=== PATIENT | female | born 1960 | race American Indian/Alaskan Native ===

== ENCOUNTER 2018-06-30 11:34 | Outpatient (CLI) | payer MEDICARE, OTHER ==
[2018-06-30 12:22] LABS: Hematocrit 42.8 % (30.3-42.9); Hemoglobin 14.6 gm/dl (10.1-14.3); Mean Corpuscular HGB Conc 34 % (30-34); Mean Corpuscular Hemoglobin 31 pg (28-32); Mean Corpuscular Volume 92 fl (79-97); Platelet Count 241 K/mm3 (140-440); Red Blood Count 4.64 M/mm3 (3.65-5.03); Red Cell Distribution Width 14.7 % (13.2-15.2)
--- NOTE | 2018-06-30 12:29 | XRay Report ---
ROUTINE CHEST, TWO VIEWS: HISTORY: Cough. The trachea, heart, mediastinal contour, lung guo and bony thorax are unremarkable. IMPRESSION: Unremarkable chest x-ray.
[2018-06-30 12:37] LABS: Alanine Aminotransferase 19 units/L (7-56); Albumin 3.8 g/dL (3.9-5); BUN/Creatinine Ratio 17; Blood Urea Nitrogen 12 mg/dL (7-17); Calcium 10.1 mg/dL (8.4-10.2); Chol/HDL Ratio 3.08 %; HDL Cholesterol 58 mg/dL (40-59); Hemolysis Index 11; LDL Cholesterol,Direct 123 mg/dL (50-130)
== END 2018-06-30 11:35 | disposition home or self-care (01) ==
LOC: XRAY 11:34
PROVIDERS: ATTEND Internal Medicine
DX: J45.909 Unspecified asthma, uncomplicated (principal); E78.00 Pure hypercholesterolemia, unspecified; I10 Essential (primary) hypertension; K21.9 Gastro-esophageal reflux disease without esophagitis; M19.90 Unspecified osteoarthritis, unspecified site; Z90.710 Acquired absence of both cervix and uterus; Z87.891 Personal history of nicotine dependence
CPT/HCPCS: 36415; 36600; 71046; 80053; 80061; 82785; 82803; 84436; 84443; 85027

== ENCOUNTER 2019-08-27 06:30 | Day surgery (SDC) | payer MEDICARE, OTHER ==
[2019-08-27] MEDS ORDERED: SODIUM CHLORIDE 0.9% 500 ML 500 ML ONE (07:12)
[2019-08-27 07:24] LABS: Basophils % (Auto) 0.5 % (0.0-1.8); Eosinophils % (Auto) 0.3 % (0.0-4.3); Hematocrit 39.1 % (30.3-42.9); Hemoglobin 13.1 gm/dl (10.1-14.3); Lymphocytes # (Auto) 3.1 K/mm3 (1.2-5.4); Lymphocytes % (Auto) 46.9 % (13.4-35.0); Mean Corpuscular HGB Conc 34 % (30-34); Mean Corpuscular Volume 97 fl (79-97); Monocytes # (Auto) 0.5 K/mm3 (0.0-0.8); Monocytes % (Auto) 7.2 % (0.0-7.3); Platelet Count 192 K/mm3 (140-440); Red Blood Count 4.02 M/mm3 (3.65-5.03); Red Cell Distribution Width 15.8 % (13.2-15.2)
[2019-08-27] MEDS ORDERED: ASPIRIN EC 325 MG TAB PO ONE (07:30)
[2019-08-27 07:34] LABS: INR 0.9 (0.87-1.13)
[2019-08-27 07:35] LABS: Partial Thromboplastin Time 24.6 Sec. (24.2-36.6)
[2019-08-27 07:44] LABS: BUN/Creatinine Ratio 21; Blood Urea Nitrogen 19 mg/dL (7-17); Hemolysis Index 2
[2019-08-27] MEDS ORDERED: SODIUM CHLORIDE 0.9% 500 ML 500 ML IV SCH (08:00)
[2019-08-27] MEDS ORDERED: HEPARIN/NS 5000 UNIT/500ML 1,000 ML IR ONE (09:03)
[2019-08-27] MEDS: MIDAZOLAM 2 MG/2 ML INJ ONE ×2 (09:44→10:04)
[2019-08-27] MEDS: fentaNYL 100 MCG/2 ML INJ ONE ×2 (09:44→10:04)
[2019-08-27] MEDS: LIDOCAINE (2%) 20 MG/1 ML VIAL 20 ML MDV INFILTRATI ONE ×2 (09:44→10:07)
[2019-08-27] MEDS: VERAPAMIL 5 MG/2 ML INJ ONE ×2 (09:45→10:08)
[2019-08-27] MEDS: NITROGLYCERIN SYRINGE 3 ML ONE ×2 (09:45→10:08)
[2019-08-27] MEDS: HEPARIN 10,000 UNITS/10 ML VIAL ONE ×2 (09:45→10:08)
--- NOTE | 2019-08-27 10:41 | Cardiac Catherization Report ---
CARDIAC CATHETERIZATION REPORT REASON FOR PROCEDURE: Chest pain, preoperative back surgery. PROCEDURES: 1. Left heart catheterization. 2. Selective left and right coronary angiography. 3. Left ventricular angiography. 4. Sedation time, start 10:04, end 10:24. DESCRIPTION OF PROCEDURE: The patient was prepped and draped in a sterile fashion after informed consent. The right radial cath site was prepped and draped after a negative Román's test. The right radial artery was entered using Seldinger technique followed by placement of a 6-[place] hydrophilic sheath. Routine radial cocktail was administered via the sheath. Selective left and right coronary angiography was performed using a #3.5 left Basia and #4 right Basia catheters. A pigtail catheter was used for left ventricular angiography. The catheters were removed, sheath removed, and hemostasis achieved using a TR band. The patient was returned to the postprocedure unit in stable condition. There were no complications. FINDINGS: HEMODYNAMICS: Left ventricular end-diastolic pressure was 28, following coronary angiography. Ascending aortic pressure was 144/67. There was no significant pressure gradient on pullback across the aortic valve. CORONARY ANGIOGRAPHY: Left main coronary artery was angiographically normal. The left anterior descending artery and its diagonal branches were free of significant disease. The circumflex artery and its obtuse marginal branches contained mild luminal irregularities. A large ramus intermedius artery was free of significant disease. The right coronary artery was dominant. This vessel contained mild to moderate diffuse atherosclerosis of its mid segment. There was an up to 30-50% luminal stenosis of the mid segment. There was normal left ventricular systolic function, ejection fraction 60-65%. CONCLUSION: 1. Mild, nonobstructive single vessel coronary artery disease of the right coronary artery. 2. Normal left ventricular systolic function, ejection fraction 60-65%. RECOMMENDATION: Aggressive risk factor modification and medical therapy. JOB# [id number] CA/NTS
--- NOTE | 2019-08-27 10:45 | Discharge Summary ---
Short Stay Discharge Plan Activity: advance as tolerated Weight Bearing Status: Full Weight Bearing Diet: low fat, low cholesterol, low salt Wound: keep clean and dry Special Instructions: no heavy lifting (3 days) Follow up with: JULIANA IVAN MD [Primary Care Provider] - 7 Days PIEDAD ROWELL MD [Staff Physician] - 7 Days
[2019-08-27] MEDS ORDERED: SODIUM CHLORIDE 0.9% 1000 ML 1,000 ML IV SCH (11:00)
[2019-08-27 13:55] VITALS: BP 158/97
== END 2019-08-27 06:31 | disposition home or self-care (01) ==
LOC: CATHLABREC 06:30
PROVIDERS: ATTEND Internal Medicine Cardiovascular Disease
DX: R07.9 Chest pain, unspecified (principal); I25.118 Atherosclerotic heart disease of native coronary artery with other forms of angina pectoris; E11.51 Type 2 diabetes mellitus with diabetic peripheral angiopathy without gangrene; I73.9 Peripheral vascular disease, unspecified; E78.00 Pure hypercholesterolemia, unspecified; I10 Essential (primary) hypertension; J45.909 Unspecified asthma, uncomplicated; K21.9 Gastro-esophageal reflux disease without esophagitis; F41.9 Anxiety disorder, unspecified; M19.90 Unspecified osteoarthritis, unspecified site; Z79.899 Other long term (current) drug therapy; Z88.0 Allergy status to penicillin; Z79.82 Long term (current) use of aspirin; Z98.890 Other specified postprocedural states; Z90.49 Acquired absence of other specified parts of digestive tract; Z90.710 Acquired absence of both cervix and uterus; Z96.659 Presence of unspecified artificial knee joint; Z85.89 Personal history of malignant neoplasm of other organs and systems; Z88.8 Allergy status to other drugs, medicaments and biological substances; Z86.73 Personal history of transient ischemic attack (TIA), and cerebral infarction without residual deficits
CPT/HCPCS: 36415; 80048; 85025; 85610; 85730; 93005; 93010; 93458; 99156; C1894; J1644; J2250; J3010; J7040; Q9967

== ENCOUNTER 2019-10-01 11:45 | Outpatient (CLI) | payer MEDICARE, OTHER ==
[2019-10-01 12:45] LABS: Hematocrit 41.6 % (30.3-42.9); Hemoglobin 14.5 gm/dl (10.1-14.3); Mean Corpuscular HGB Conc 35 % (30-34); Mean Corpuscular Volume 95 fl (79-97); Platelet Count 229 K/mm3 (140-440); Red Blood Count 4.38 M/mm3 (3.65-5.03)
[2019-10-01 12:56] LABS: Albumin 3.8 g/dL (3.9-5); BUN/Creatinine Ratio 14; Blood Urea Nitrogen 10 mg/dL (7-17); Calcium 9.5 mg/dL (8.4-10.2); Hemolysis Index 337
--- NOTE | 2019-10-01 14:45 | Cat Scan Report ---
CT CHEST WITH CONTRAST INDICATION / CLINICAL INFORMATION: R07.81 PLEURODYNIA. TECHNIQUE: Axial CT images were obtained through the chest after 100 cc Omnipaque 300 IV contrast. Sagittal and coronal reformatted images. All CT scans at this location are performed using CT dose reduction for A ACOSTA by means of automated exposure control. COMPARISON: None available. FINDINGS: HEART: No significant abnormality. THORACIC AORTA: No significant abnormality. MEDIASTINUM and MORA: No significant abnormality. LUNGS: No acute air space or interstitial disease. PLEURA: No significant pleural effusion. No pneumothorax. SKELETAL SYSTEM: No significant abnormality. UPPER ABDOMEN: No acute abnormality. Cholecystectomy changes, gastric surgical changes and 2 cm left renal cyst are noted. ADDITIONAL FINDINGS: None. IMPRESSION: No significant abnormality. Signer Name: Ritchie Al Jr, MD Signed: 10/01/2019 2:41 PM Workstation Name: [id number]
[2019-10-01 15:10] LABS: Alanine Aminotransferase 17 units/L (7-56)
--- NOTE | 2019-10-01 15:50 | Cat Scan Report ---
CT CERVICAL SPINE WITHOUT CONTRAST INDICATION: R07.81 PLEURODYNIA. TECHNIQUE: Axial imaging performed through the or focal without the use of contrast. Sagittal and c oronal reconstructed images were also reviewed. All CT scans at this location are performed using CT dose reduction for ALARA by means of automated exposure control. COMPARISON: None FINDINGS: Alignment: Spinal alignment is normal. Bones: There is no acute osseous abnormality. There is been previous anterior fusion at C3-4 and C4 -5. There appears to be partial bony fusion of the C3-4 disc space. No bony fusion at the C4-5 disc s pace is appreciated. Mild bilateral uncovertebral spurring is identified at C4-5. Mild right neural f oraminal narrowing is estimated at 50%. The remaining levels are within normal limits. Soft tissues: No acute or significant incidental soft tissue abnormality. IMPRESSION: No acute injury is identified. Fusion changes as described above. Signer Name: Ritchie Al Jr, MD Signed: 10/01/2019 3:45 PM Workstation Name: [id number]
--- NOTE | 2019-10-01 15:51 | Cat Scan Report ---
CT THORACIC SPINE WITHOUT CONTRAST INDICATION: R07.81 PLEURODYNIA. TECHNIQUE: Axial imaging performed through the cervical spine without the use of contrast. Sagittal and coronal reconstructed images were also reviewed. All CT scans at this location are performed us ing CT dose reduction for ALARA by means of automated exposure control. COMPARISON: None FINDINGS: Alignment: Spinal alignment is normal. Bones: There is no acute osseous abnormality. Minimal anterior spurring is noted throughout the tho racic spine. No advanced degenerative changes. No suspicious bony lesion. Soft tissues: No acute or significant incidental soft tissue abnormality. IMPRESSION: Minimal thoracic spondylosis. No acute process. Signer Name: Ritchie Al Jr, MD Signed: 10/01/2019 3:46 PM Workstation Name: [id number]
--- NOTE | 2019-10-01 15:53 | Cat Scan Report ---
CT LUMBAR SPINE WITH CONTRAST INDICATION: M54 LOW BACK PAIN. TECHNIQUE: Axial imaging performed through the without the use of contrast. Sagittal and coronal re constructed images were also reviewed. All CT scans at this location are performed using CT dose red uction for ALARA by means of automated exposure control. COMPARISON: None FINDINGS: Comment: There is minimal residual IV contrast primarily within the renal collecting systems from rec ent CT chest with contrast. Alignment: Spinal alignment is normal. Bones: There is no acute osseous abnormality. No significant degenerative changes are identified. No suspicious bony lesion. Soft tissues: No acute or significant incidental soft tissue abnormality. IMPRESSION: Unremarkable CT lumbar spine. Signer Name: Rtichie Al Jr, MD Signed: 10/01/2019 3:49 PM Workstation Name: [id number]
== END 2019-10-01 11:46 | disposition home or self-care (01) ==
LOC: CT 11:45
PROVIDERS: ATTEND Internal Medicine
DX: M47.814 Spondylosis without myelopathy or radiculopathy, thoracic region (principal); R07.81 Pleurodynia; M54.5 Low back pain; Z90.49 Acquired absence of other specified parts of digestive tract
CPT/HCPCS: 36415; 71260; 72126; 72129; 72132; 80053; 85027; Q9967